=== PATIENT | male | born 1990 | race Two or more races ===

== ENCOUNTER 2023-06-12 18:04 | Inpatient (IN) | payer MEDICAID, OTHER ==
[~2023-06-12] VITALS: Ht 167.6 cm; Wt 67.2 kg
[2023-06-12 18:48] LABS: Basophils # (auto) 0 10 ^3/uL (0-0.2); Basophils % (auto) 0.4 % (0.0-2.0); Eosinophils # (auto) 0.1 10 ^3/uL (0-0.8); Eosinophils % (auto) 2.2 % (0.0-7.0); Hematocrit 43.3 % (41.0-53.0); Hemoglobin 15.4 g/dL (13.5-17.5); Lymphocytes # (auto) 2.2 10 ^3/uL (0.4-5.4); Lymphocytes % (auto) 33.7 % (10.0-50.0); Mean Corpuscular Hemoglobin 31.5 pg (28.0-32.0); Mean Corpuscular Hgb Conc. 35.6 g/dL (32.0-36.0); Mean Corpuscular Volume 88.7 fL (80.0-100.0); Monocytes # (auto) 0.5 10 ^3/uL (0-1.3); Monocytes % (auto) 7.2 % (0.0-12.0); Neutrophils # (auto) 3.6 10 ^3/uL (1.6-8.6); Neutrophils % (auto) 56.5 % (37.0-80.0); Nucleated Red Blood Cells % 0.2 %; Red Blood Cells 4.88 10^6/uL (4.5-5.90); Red Cell Distribution Width 13.2 % (11.8-14.3); White Blood Cell 6.5 10^3/uL (4.4-10.8)
[2023-06-12 18:53] LABS: Urine Bacteria NONE SEEN /hpf (None Seen); Urine Blood Negative /uL (Negative); Urine Clarity Clear (Clear); Urine Color Yellow (Yellow); Urine Protein, UAD TRACE (Negative); Urine Specific Gravity 1.026 (1.001-1.035); Urine WBC <1 /hpf (0 - 3); Urine pH 6.5 (5.0-8.0)
[2023-06-12 19:12] LABS: Alanine Aminotransferase 73 U/L (7-40); Albumin 4.7 g/dL (3.2-4.8); Alkaline Phosphatase 146 U/L (46-116); Anion Gap 7 (5-15); BUN/Creatinine Ratio 13.9 (10.0-20.0); Blood Urea Nitrogen 11 mg/dL (9-23); Calcium 9.5 mg/dL (8.7-10.4); Carbon Dioxide 27 mmol/L (20-30); Chloride 105 mmol/L (98-107); Glucose 111 mg/dL (74-106); Lipase 63 U/L (12-53); Potassium 3.7 mmol/L (3.5-5.1); Sodium 139 mmol/L (136-145)
[2023-06-12 19:13] LABS: Aspartate Aminotransferase 43 U/L (13-40); Bilirubin, Total 0.5 mg/dL (0.2-1.0); Total Protein 7.3 g/dL (5.7-8.2)
[2023-06-13] VITALS (7 sets, daily range): BP systolic 102–106; BP diastolic 67–78; PULSE 71–124; RESP 13–20; TEMP 98.3–98.4; O2SAT 94–100
[2023-06-13] MEDS ORDERED: DICY10CA PO (03:04)
[2023-06-13] MEDS ORDERED: ONDANSETRON HCL 4 MG/2 ML VIAL IV ONE (03:30)
[2023-06-13] MEDS ORDERED: cefTRIAXone 1GM/50ML D5W 50 ML IV ONE (03:30)
[2023-06-13] MEDS ORDERED: MORPHINE SULFATE 4 MG/ML SYR/VIAL IV ONE (03:30)
[2023-06-13] MEDS ORDERED: metroNIDAZOLE 500MG/100ML 100 ML IV ONE (03:30)
[2023-06-13] MEDS ORDERED: MORPHINE SULFATE INJ 2 MG/ml SYRG IV PRN (04:45)
[2023-06-13] MEDS ORDERED: ONDANSETRON HCL 4 MG/2 ML VIAL IV PRN ×2 (04:45→23:00)
[2023-06-13] MEDS: SODIUM CHLORIDE 0.9% 1,000 ML IV SCH ×2 (05:07→18:05)
[2023-06-13 05:25] LABS: INR 1.02 (0.9-1.15); Partial Thromboplastin Time 29.3 SEC (24.5-34.5); Prothrombin Time 10.7 sec (9.3-11.8)
[2023-06-13] MEDS: metroNIDAZOLE 500MG/100ML 100 ML IV SCH ×3 (06:10→23:47)
[2023-06-13] MEDS: cefTRIAXone 1GM/50ML D5W 50 ML IV SCH (09:06)
[2023-06-13] MEDS ORDERED: HYDROmorphone HCL 2 MG/ML VL/or syr ONE (20:58)
[2023-06-13] MEDS ORDERED: MIDAZOLAM HCL 2MG/2ML 2ml VIAL (1mg/ml) ONE (20:58)
[2023-06-13] MEDS ORDERED: fentaNYL CITRATE 100 MCG/2 ML VL ONE (20:58)
[2023-06-13] MEDS ORDERED: PROPOFOL 10 MG/ML 20 ML IV ONE (20:59)
[2023-06-13] MEDS ORDERED: SUGAMMADEX 200mg/2ml Vial (100MG/ML) IV ONE (20:59)
[2023-06-13] MEDS ORDERED: DexAMETHasone SOD PHOS 10MG/1ML VIAL INJ ONE (20:59)
[2023-06-13] MEDS ORDERED: KETOROLAC TROMETH 30 MG/ML 1ML VIAL ONE (20:59)
[2023-06-13] MEDS ORDERED: LIDOCAINE 2% (LOCAL ANESTH.) PF 5ml SDV ONE (20:59)
[2023-06-13] MEDS ORDERED: ePHEDrine SULFATE 50 MG/ML AMP ONE (20:59)
[2023-06-13] MEDS ORDERED: GLYCOPYRROLATE 0.2 MG/ML 1ML VIAL ONE (20:59)
[2023-06-13] MEDS ORDERED: ROCURONIUM 10MG/ML 10ML VIAL IV ONE (20:59)
[2023-06-13] MEDS ORDERED: BUPIVACAINE 0.25% INJ 50ML VIAL ONE (21:18)
[2023-06-13] MEDS ORDERED: HYDROmorphone HCL 2 MG/ML VL/or syr IV PRN (23:00)
[2023-06-14 06:00] VITALS: BP 103/62; PULSE 104; RESP 18; TEMP 97.7; O2SAT 97
[2023-06-14 06:13] LABS: Basophils # (auto) 0 10 ^3/uL (0-0.2); Eosinophils # (auto) 0 10 ^3/uL (0-0.8); Hematocrit 41.9 % (41.0-53.0); Hemoglobin 14.8 g/dL (13.5-17.5); Lymphocytes # (auto) 0.5 10 ^3/uL (0.4-5.4); Lymphocytes % (auto) 6.7 % (10.0-50.0); Mean Corpuscular Hemoglobin 31.2 pg (28.0-32.0); Mean Corpuscular Hgb Conc. 35.3 g/dL (32.0-36.0); Mean Corpuscular Volume 88.2 fL (80.0-100.0); Monocytes # (auto) 0 10 ^3/uL (0-1.3); Monocytes % (auto) 0.5 % (0.0-12.0); Neutrophils # (auto) 6.6 10 ^3/uL (1.6-8.6); Neutrophils % (auto) 92.8 % (37.0-80.0); Nucleated Red Blood Cells % 0.1 %; Red Blood Cells 4.75 10^6/uL (4.5-5.90); Red Cell Distribution Width 12.5 % (11.8-14.3); White Blood Cell 7.1 10^3/uL (4.4-10.8)
[2023-06-14 06:16] LABS: Alanine Aminotransferase 81 U/L (7-40); Albumin 4.5 g/dL (3.2-4.8); Alkaline Phosphatase 109 U/L (46-116); Anion Gap 9 (5-15); Aspartate Aminotransferase 59 U/L (13-40); BUN/Creatinine Ratio 11.9 (10.0-20.0); Bilirubin, Total 0.9 mg/dL (0.2-1.0); Blood Urea Nitrogen 8 mg/dL (9-23); Calcium 9.3 mg/dL (8.5-10.1); Carbon Dioxide 24 mmol/L (20-30); Chloride 103 mmol/L (98-107); Glucose 165 mg/dL (74-106); Potassium 3.8 mmol/L (3.5-5.1); Sodium 136 mmol/L (136-145); Total Protein 7.3 g/dL (5.7-8.2)
[2023-06-14] MEDS: metroNIDAZOLE 500MG/100ML 100 ML IV SCH ×3 (06:17→21:30)
[2023-06-14] MEDS: SODIUM CHLORIDE 0.9% 1,000 ML IV SCH ×2 (07:32→20:45)
[2023-06-14 08:00] VITALS: PULSE 110; RESP 14; O2SAT 98
[2023-06-14] MEDS: cefTRIAXone 1GM/50ML D5W 50 ML IV SCH (08:53)
[2023-06-14 09:00] VITALS: BP 107/65; PULSE 110; RESP 14; TEMP 97.6; O2SAT 98
[2023-06-14 10:49] LABS: Hepatitis B Surface Antibody Negative (Negative)
[2023-06-14 11:21] LABS: Hepatitis C Antibody Negative (Negative)
[2023-06-14 13:00] VITALS: BP 96/60; PULSE 103; RESP 14; TEMP 97.9; O2SAT 100
[2023-06-14 17:00] VITALS: BP 91/59; PULSE 98; RESP 14; TEMP 97.7; O2SAT 97
[2023-06-14 20:00] VITALS: PULSE 98; RESP 16; O2SAT 98
[2023-06-15] MEDS: metroNIDAZOLE 500MG/100ML 100 ML IV SCH (05:42)
[2023-06-15 08:05] VITALS: BP 107/64; PULSE 80; RESP 16; TEMP 98.1
[2023-06-15] MEDS: cefTRIAXone 1GM/50ML D5W 50 ML IV SCH (08:51)
[2023-06-15 09:00] VITALS: BP 107/64; PULSE 86; RESP 16; TEMP 98.1; O2SAT 97
[2023-06-15] MEDS ORDERED: HYDR-4902 PO (11:11)
[2023-06-15] MEDS ORDERED: ZOFR4T PO (11:11)
[2023-06-15] MEDS ORDERED: MET500T PO (11:11)
[2023-06-15] MEDS ORDERED: HYDROcodone-ACET 5/325MG TAB PO PRN (11:15)
[2023-06-15] MEDS: SODIUM CHLORIDE 0.9% 1,000 ML IV SCH (11:34)
[2023-06-15 12:36] VITALS: BP 108/69; PULSE 72; RESP 18; TEMP 98.5; O2SAT 99
[2023-06-15 13:41] VITALS: BP 108/69; PULSE 72; RESP 18; TEMP 98.5; O2SAT 99
== END 2023-06-15 14:32 | disposition home or self-care (01) | DRG 234 ==
LOC: ER 18:04 → OVERFLOW 06-13 04:40 → WEST WING 06-13 13:29
PROVIDERS: ADMIT Nurse Practitioner; ATTEND Internal Medicine
PROC: 0DTJ4ZZ Resection of Appendix, Percutaneous Endoscopic Approach (ICD-10-PCS; principal; 2023-06-13 21:20)
DX: K35.30 Acute appendicitis with localized peritonitis, without perforation or gangrene (principal); R74.01 Elevation of levels of liver transaminase levels; Z82.49 Family history of ischemic heart disease and other diseases of the circulatory system; Z83.3 Family history of diabetes mellitus
CPT/HCPCS: 36415; 80053; 81001; 83690; 85025; 85610; 85730; 86706; 86803; 86850; 86900; 86901; 96365; G0378; J0696; J1100; J1885; J2001; J2250; J2704; J3490